=== PATIENT | male | born 1975 | race Caucasian/White ===

== ENCOUNTER 2017-02-06 11:09 | Inpatient (IN) | payer OTHER ==
[2017-02-06] MEDS ORDERED: SODIUM CHLORIDE 1,000 ML IV STA ×3 (12:12→12:58)
[2017-02-06] MEDS ORDERED: ONDANSETRON 4 MG/2 ML VIAL IVPUSH ONE (12:19)
[2017-02-06] MEDS ORDERED: ONDANSETRON 4 MG/2 ML VIAL ONE (12:25)
[2017-02-06 12:27] LABS: BASOPHIL 0.5 % (0-2.0); MCH 32.8 pg (25.7-33.7); MCHC 32.7 g/dl (32.0-35.9); MEAN CELL VOLUME 100.4 fl (80-96); MEAN PLT VOLUME 9.2 fl (7.5-11.1); NEUTROPHILS 85.4 % (42.8-82.8); PLATELET COUNT 249 K/MM3 (134-434); RDW 13.8 % (11.9-15.9); WHITE BLOOD COUNT 7.9 K/mm3 (4.0-10.0)
--- NOTE | 2017-02-06 12:29 | PDOC ---
History of Present Illness - General Chief Complaint: Blood Sugar Problem Stated Complaint: HIGH SUGAR LEVELS Time Seen by Provider: 02/06/17 11:33 History Source: Patient Exam Limitations: No Limitations - History of Present Illness Initial Comments: This is a 41 yo male with h/o IDDM (dx age 24 with estimated >20 admissions and multiple episodes of DKA), [place] with stent x1, HTN, and schizo-affective disorder who presents BIBA with CBG>500 and c/o nausea, vomiting, shakes, excessive thirst, and excessive urination typical of his prior DKA symptoms. He notes that the symptoms started when he awoke this morning, and explains that he did not take his normal Lantus at all yesterday (normally takes 10 units in the morning and 5 units at night). He states that he did take his normal Humalog at each meal yesterday. He notes having drank one light beer yesterday night, but otherwise does not say why he did not take it. He additionally endorses chest pain which feels like burning, palpitations, difficulty seeing intermittently, and subjective fever. Past History - Past Medical History Allergies/Adverse Reactions: Allergies Allergy/AdvReac Type Severity Reaction Status Date / Time Penicillins Allergy Verified 02/06/17 11:27 shellfish derived Allergy Verified 02/06/17 11:27 Home Medications: Ambulatory Orders Benztropine Mesylate [Cogentin -] 1 mg PO BID 03/15/14 Haloperidol [Haldol -] 5 mg PO DAILY 03/15/14 Insulin Glargine,Hum.rec.anlog [Lantus Solostar PEN -] 15 units SQ HS 03/15/14 Insulin Lispro [Humalog] 10 unit SQ AC 03/15/14 Cardiac Disorders: Yes ([place]) Diabetes: Yes HTN: Yes Psychiatric Problems: Yes (schizoaffective disorder) - Surgical History Cardiac Surgery: Yes (stent) - Immunization History Immunization Up to Date: Yes - Psycho/Social/Smoking Cessation Hx Anxiety: No Suicidal Ideation: No Smoking History: Current every day smoker Have you smoked in the past 12 months: Yes Number of Cigarettes Smoked Daily: 20 Information on smoking cessation initiated: No 'Breaking Loose' booklet given: 03/15/14 Hx Alcohol Use: Yes Drug/Substance Use Hx: No Substance Use Type: None Hx Substance Use Treatment: No Review of Systems - Review of Systems Able to Perform ROS?: Yes Constitutional: Yes: Chills, Fever (subjective). No: Unexplained wgt Loss HEENTM: Yes: Recent change in vision. No: Nose Congestion, Throat Pain Respiratory: No: Cough, Shortness of Breath Cardiac (ROS): Yes: Chest Pain (burning after vomiting), Palpitations ABD/GI: Yes: Nausea, Vomiting, Abdominal cramping. No: Constipated, Diarrhea : Yes: Frequency. No: Burning, Dysuria Musculoskeletal: No: Back Pain, Neck Pain Integumentary: No: Bruising, Rash Neurological: Yes: Tremors, Weakness, Dizziness, Other (shaky). No: Headache, Numbness, Tingling Endocrine: Yes: Increased Thirst, Increased Urine. No: Unexplained Weight Gain , Unexplained Weight Loss *Physical Exam - Vital Signs Last Vital Signs Temp Pulse Resp BP Pulse Ox 97.9 F 104 H 22 110/70 98 02/06/17 11:22 02/06/17 11:22 02/06/17 11:22 02/06/17 11:02/06/17 12:02 - Physical Exam General Appearance: Yes: Nourished, Disheveled, Moderate Distress, Thin, Other ( uncooperative, intermittently answering questions, unable to sit still, speech slurred, eating ice chips persistently) HEENT: positive: EOMI, Normal Voice, Hearing Grossly Normal. negative: Scleral Icterus (R), Scleral Icterus (L), Nasal Congestion Neck: positive: Trachea midline, Supple. negative: Tender, Rigid Respiratory/Chest: positive: Lungs Clear, Normal Breath Sounds, Other ( occasional cough). negative: Respiratory Distress, Crackles, Rhonchi, Stridor, Wheezing Cardiovascular: positive: Regular Rhythm, Tachycardia. negative: Murmur Gastrointestinal/Abdominal: positive: Normal Bowel Sounds, Tender (minimal diffuse), Flat, Soft. negative: Organomegaly, Pulsatile Mass, Guarding Musculoskeletal: positive: Normal Inspection. negative: Decreased Range of Motion, Vertebral Tenderness Extremity: positive: Normal Capillary Refill, Normal Inspection, Normal Range of Motion. negative: Tender, Cyanosis Integumentary: positive: Normal Color, Dry, Warm. negative: Erythema, Rash, Bruising Neurologic: positive: lacquer coater II-XII NML intact, Fully Oriented, Alert, Normal Mood/ Affect, Normal Response, Motor Strength 5/5 ED Treatment Course - LABORATORY CBC & Chemistry Diagram: 02/06/17 12:20 02/06/17 12:20 Comment: Serum acetone 3+, VBG pH 7.25, VBG HCO3 13.7, anion gap 28 - RADIOLOGY Chest X-Ray Result: No Infiltrates Medical Decision Making - Medical Decision Making 41 yo male with poorly controlled type I IDDM and multipe prior DKA p/w CBG 648. Did not take Lantus yesterday. Has nausea, many episodes of vomiting, shakiness, dizziness, polyuria, polydipsia. Exam notable for eating many ice chips, HR 106, slurred speech, occasional cough , abdominal minimal ttp. DDX most likely DKA, possible HHS or other electrolyte imbalance. Cause of DKA DDX pancreatitis, UTI, PNA, arrhythmia, ACS, non-adherence to insulin regimen. Ordered are CBC, CMP, Mg, Phos, Troponin, serum acetone, lipase, VBG, UA w/ ctx , EKG, CXR, IVF, Zofran. BG 648, serum acetone 3+, VBG pH 7.25 and anion gap 28. Patient is in DKA and a second liter of NS is ordered with KCl and insulin drip. Also ordered insulin SQ bolus. CXR, EKG, UA, troponin, additional electrolytes all non-directive toward a precipitating cause. Pt is admitted to ICU for further management. *DC/Admit/Observation/Transfer Diagnosis at time of Disposition: DKA (diabetic ketoacidosis) Qualifiers: Diabetes mellitus type: type 1 Diabetes mellitus complication detail: without coma Qualified Code(s): E10.10 - Type 1 diabetes mellitus with ketoacidosis without coma - Discharge Dispostion Condition at time of disposition: Guarded Admit: Yes - Attestations Physician Attestion: 02/06/17 14:00 I, Dr. Lawanda Jiménez, attest that this document has been prepared under my direction and personally reviewed by me in its entirety. I further attest, that it accurately reflects all work, treatment, procedures and medical decision -making performed by me.
[2017-02-06 12:32] LABS: VENOUS BLOOD GAS HCO3 13.7 meq/L (19-25); VENOUS PH 7.25 (7.32-7.42)
[2017-02-06 12:49] LABS: MAGNESIUM 2.9 mg/dL (1.8-2.4); PHOSPHOROUS 6.1 mg/dL (2.5-4.9)
--- NOTE | 2017-02-06 12:51 | PDOC ---
Attending Attestation - Resident Resident Name: Lawanda Jiménez - ED Attending Attestation I have performed the following: I have examined & evaluated the patient, The case was reviewed & discussed with the resident, I agree w/resident's findings & plan, Exceptions are as noted - HPI HPI: 02/06/17 12:49 Agree with the resident's HPI as documented in the electronic medical record. - Physicial Exam PE: 02/06/17 12:50 Agree with the resident's physical examination as documented in the electronic medical record. - Medical Decision Making 02/06/17 12:50 41-year-old male with history of schizoaffective disorder and insulin-dependent diabetes with DKA in the past presents the emergency department with a myriad of symptomatology including chest pain, abdominal pain, vomiting and an elevated glucose. He is normotensive but mildly tachycardic. Differential diagnosis includes but is not limited to: DKA, uncontrolled diabetes, dehydration, electrolyte abnormality, infection (UTI, pneumonia), pancreatitis, gallbladder disease, toxic/metabolic derangement, ACS. Plan: 1. EKG 2. Labs 3. IV fluids for hydration 4. Chest x-ray 5. Urine analysis 6. Observe and reevaluate 02/06/17 13:03 Addendum: Labs are reviewed and are noted in the EMR. The patient is acidotic with a pH is 7.25 with an anion gap of 28, bicarbonate 15 and glucose in the high 600s with +3 acetone. The patient has been ordered 3 L of IV fluids with supplemental potassium to the fluids. Insulin drip has been initiated at 0.1 units per kilogram per hour as well as a regular insulin 10 unit subcutaneous bolus. The plan is to admit the patient to intensive care for DKA.
[2017-02-06 12:52] LABS: ALBUMIN 4.7 g/dl (3.4-5.0); ANION GAP 28 (8-16); BILIRUBIN,TOTAL 1.4 mg/dL (0.2-1.0); CALCIUM 10.1 mg/dL (8.5-10.1); CO2 15 mmol/L (21-32); CREATININE 1.3 mg/dL (0.7-1.3); SGOT/AST 39 U/L (15-37); SGPT/ALT 40 U/L (12-78); TOT PROT 7.9 g/dl (6.4-8.2)
[2017-02-06 12:55] LABS: ALK PHOS 154 U/L (45-117); TROPONIN I < 0.02 ng/ml (0.00-0.05)
[2017-02-06 12:58] LABS: GLUCOSE,RANDOM 648 mg/dL (74-106)
[2017-02-06] MEDS ORDERED: INSULIN REGULAR HUMAN 100 UNITS/ML *VIAL SQ ONE (12:58)
[2017-02-06] MEDS ORDERED: INSULIN REGULAR 100 UNITS in SODIUM CHLORIDE 99 ML IVPB SCH ×5 (13:00→21:27)
[2017-02-06] MEDS ORDERED: KCL 10 MEQ IVPB 100 ML IVPB SCH (13:00)
[2017-02-06] MEDS ORDERED: KCL 10 MEQ IVPB 100 ML IVPB ONE (13:22)
[2017-02-06 13:54] LABS: URINE APPEARANCE CLEAR; URINE BILIRUBIN NEGATIVE (NEGATIVE); URINE BLOOD NEGATIVE (NEGATIVE); URINE COLOR COLORLESS; URINE GLUCOSE (UA) 3+ (NEGATIVE); URINE KETONE 2+ (NEGATIVE); URINE LEUK ESTERASE NEGATIVE (NEGATIVE); URINE NITRITE NEGATIVE (NEGATIVE); URINE PROTEIN NEGATIVE (NEGATIVE); URINE UROBILINOGEN NEGATIVE mg/dL (0.2-1.0)
--- NOTE | 2017-02-06 14:28 | CONSULT ---
Consult Consult Specialty:: PULM/CRITICAL CARE MEDICINE Referred by:: Dr Cedillo Reason for Consultation:: DKA - History of Present Illness Chief Complaint: nausea and vomiting History of Present Illness: Briefly, a 41 y/o male IDDM with schizoaffective disorder, multiple admits for DKA, presents with several days of nausea and vomiting. BGL in ED >600, AGMA (28 ), with ketones in urine. He was given IVF and insulin. He is being admitted to ICU. Upon my interview he is querulous, refusing to answer questions or repeat information that he has already provided. He has become neither a digital media producer nor a consumer of information at this time. - History Source History Provided By: Medical Record Limitations to Obtaining History: Uncooperative - Past Medical History Cardio/Vascular: Yes: HTN, Hyperlipdemia, [place] (Status post stent) Gastrointestinal: Yes: Other (Hernia) Psych: Yes: Other (Schizoaffective disorder) Endocrine: Yes: Diabetes Mellitus - Past Surgical History Past Surgical History: Yes: None - Alcohol/Substance Use Hx Alcohol Use: Yes Number of Drinks Daily: 1 History of Substance Use: reports: Marijuana - Smoking History Smoking history: Current every day smoker Have you smoked in the past 12 months: Yes Aproximately how many cigarettes per day: 20 Home Medications - Allergies Allergies/Adverse Reactions: Allergies Allergy/AdvReac Type Severity Reaction Status Date / Time Penicillins Allergy Verified 02/06/17 11:27 shellfish derived Allergy Verified 02/06/17 11:27 - Home Medications Home Medications: Ambulatory Orders Benztropine Mesylate [Cogentin -] 1 mg PO BID 03/15/14 Haloperidol [Haldol -] 5 mg PO DAILY 03/15/14 Insulin Glargine,Hum.rec.anlog [Lantus Solostar PEN -] 15 units SQ HS 03/15/14 Insulin Lispro [Humalog] 10 unit SQ AC 03/15/14 Family Disease History - Family Disease History Family Disease History: Diabetes: Father, Other: Mother (unknown) Review of Systems Unable to obtain ROS, reason: refuses to answer Physical Exam Vital Signs: Vital Signs Temperature 97.9 F 02/06/17 11:22 Pulse Rate 104 H 02/06/17 11:22 Respiratory Rate 22 02/06/17 11:22 Blood Pressure 110/70 02/06/17 11:22 O2 Sat by Pulse Oximetry (%) 98 02/06/17 12:02 Constitutional: Yes: Cachectic, Thin Eyes: Yes: PERRL HENT: Yes: Atraumatic, Normocephalic Neck: Yes: Trachea Midline Cardiovascular: Yes: Regular Rate and Rhythm Respiratory: Yes: CTA Bilaterally Gastrointestinal: Yes: Soft Extremities: Yes: WNL Edema: No Integumentary: Yes: WNL Neurological: Yes: Alert, Oriented Labs: CBC, BMP 02/06/17 12:20 02/06/17 12:20 Problem List - Problems (1) DKA (diabetic ketoacidosis) Code(s): E13.10 - OTH DIABETES MELLITUS WITH KETOACIDOSIS WITHOUT COMA Qualifiers: Diabetes mellitus type: type 1 Diabetes mellitus complication detail: without coma Qualified Code(s): E10.10 - Type 1 diabetes mellitus with ketoacidosis without coma (2) Schizoaffective disorder Code(s): F25.9 - SCHIZOAFFECTIVE DISORDER, UNSPECIFIED Assessment/Plan DKA Dehydration Schizoaffective disorder -Insulin drip 0.1units/kg/hr -q1h fingersticks -IVF - NS for now -Add Dextrose to NS when BGL is <250 -q4h BMP -Aggressive K replacement -Zofran PRN -Continue home meds -Convert to subcutaneous Insulin when able to tolerate POs and AG has closed Thank you for this interesting consult Critically Ill - CCT 35min Erwin Llanos [place]/Critical Care [employer] INSTALLER [id number]
--- NOTE | 2017-02-06 14:44 | HP ---
CHIEF COMPLAINT: Nausea/vomiting PCP: Will not give that information HISTORY OF PRESENT ILLNESS: This is a 41 year old male with PMHx of schizoaffective disorder, HTN, IDDM with multiple admissions for DKA, [place] s/p stent placement in 2012, who presented to the ED with nausea and vomiting and was found to have DKA. That patient is unwilling to speak to me at the moment, repeating "I already told people this". He is reportedly taking 10u Levemir bid and 7u humalog tidac. His vomiting began this morning. ER course was notable for: (1) VBG pH 7.25 (2) Na 133, anion gap 28, glucose 648, 2+ urine ketones, acetone 3+ (3) Chest x-ray with no acute pathology (4) 10u sq novolog given followed by insulin gtt (5) 3L NS bolus ordered Recent Travel: unwilling to provide this information PAST MEDICAL HISTORY: as above PAST SURGICAL HISTORY: unwilling to provider Social History: Smoking: unwilling to provide Alcohol: unwilling to provide Drugs: unwilling to provide Family History: Allergies Penicillins Allergy (Verified 02/06/17 11:27) shellfish derived Allergy (Verified 02/06/17 11:27) HOME MEDICATIONS: Home Medications Medication Instructions Recorded Benztropine Mesylate [Cogentin -] 1 mg PO BID 03/15/14 Haloperidol [Haldol -] 5 mg PO DAILY 03/15/14 Insulin Glargine,Hum.rec.anlog 15 units SQ HS 03/15/14 [Lantus Solostar PEN -] Insulin Lispro [Humalog] 10 unit SQ AC 03/15/14 REVIEW OF SYSTEMS Patient reports nausea and vomiting beginning this morning. Was unwilling to answer any further questions PHYSICAL EXAMINATION Vital Signs - 24 hr 02/06/17 02/06/17 11:22 12:02 Temperature 97.9 F Pulse Rate 104 H Respiratory 22 Rate Blood Pressure 110/70 O2 Sat by Pulse 98 98 Oximetry (%) GENERAL: Awake, alert HEAD: Normal with no signs of trauma. Refused exam CBCD WBC 7.9 K/mm3 (4.0-10.0) D 02/06/17 12:20 RBC 4.29 M/mm3 (4.00-5.60) 02/06/17 12:20 Hgb 14.1 GM/dL (11.7-16.9) D 02/06/17 12:20 Hct 43.1 % (35.4-49) D 02/06/17 12:20 MCV 100.4 fl (80-96) H 02/06/17 12:20 MCHC 32.7 g/dl (32.0-35.9) 02/06/17 12:20 RDW 13.8 % (11.9-15.9) 02/06/17 12:20 Plt Count 249 K/MM3 (134-434) 02/06/17 12:20 MPV 9.2 fl (7.5-11.1) 02/06/17 12:20 CMP Sodium 133 mmol/L (136-145) L 02/06/17 12:20 Potassium 5.0 mmol/L (3.5-5.1) D 02/06/17 12:20 Chloride 90 mmol/L (98-107) L D 02/06/17 12:20 Carbon Dioxide 15 mmol/L (21-32) L D 02/06/17 12:20 Anion Gap 28 (8-16) H 02/06/17 12:20 BUN 29 mg/dL (7-18) H D 02/06/17 12:20 Creatinine 1.3 mg/dL (0.7-1.3) D 02/06/17 12:20 Creat Clearance w eGFR > 60 (>60) 02/06/17 12:20 Random Glucose 648 mg/dL (74-106) H* D 02/06/17 12:20 Calcium 10.1 mg/dL (8.5-10.1) 02/06/17 12:20 Total Bilirubin 1.4 mg/dL (0.2-1.0) H D 02/06/17 12:20 AST 39 U/L (15-37) H D 02/06/17 12:20 ALT 40 U/L (12-78) D 02/06/17 12:20 Alkaline Phosphatase 154 U/L (45-117) H D 02/06/17 12:20 Total Protein 7.9 g/dl (6.4-8.2) 02/06/17 12:20 Albumin 4.7 g/dl (3.4-5.0) 02/06/17 12:20 CARDIAC ENZYMES Troponin I < 0.02 ng/ml (0.00-0.05) 02/06/17 12:20 Assessment: This is a 41 year old male with PMHx of schizoaffective disorder, HTN, IDDM with multiple admissions for DKA, [place] s/p stent placement in 2012, who presented to the ED with nausea and vomiting and was found to have DKA. Plan: 1) DKA - Admission to ICU - Continue insulin gtt - Continue normal saline IVF for now, will recheck glucose level. When glucose falls <250, will add dextrose - BGM q1h - Q4h BMP to monitor gap - Aggressive K replacement - Zofran prn - NPO status until gap closes - Convert to subq insulin once anion gap closes and tolerating po - Appreciate senior project manager engineering consult 2) Schizoaffective disorder - Continue Haldol - Continue Cogentin 3) Cardiology: HTN - Not on home medications - BP controlled 4) F/E/N: - Monitor electrolytes - NPO - IVF 5) Prophylaxis: - Heparin 5,000u sq tid - OOB ambulating 6) Dispo: - Requires continued ICU care CODE STATUS: FULL CODE Problem List - Problem (1) DKA (diabetic ketoacidosis) Code(s): E13.10 - OTH DIABETES MELLITUS WITH KETOACIDOSIS WITHOUT COMA Qualifiers: Diabetes mellitus type: type 1 Diabetes mellitus complication detail: without coma Qualified Code(s): E10.10 - Type 1 diabetes mellitus with ketoacidosis without coma (2) Diabetes type 1, uncontrolled Code(s): E10.65 - TYPE 1 DIABETES MELLITUS WITH HYPERGLYCEMIA (3) Schizoaffective disorder Code(s): F25.9 - SCHIZOAFFECTIVE DISORDER, UNSPECIFIED Visit type - Emergency Visit Emergency Visit: Yes ED Registration Date: 02/06/17 Care time: The patient presented to the Emergency Department on the above date and was hospitalized for further evaluation of their emergent condition. - New Patient This patient is new to me today: Yes Date on this admission: 02/06/17 - Critical Care Critical Care patient: Yes Total Critical Care Time (in minutes): 55 Critical Care Statement: The care of this patient involved high complexity decision making to prevent further life threatening deterioration of the patient 's condition and/or to evalute & treat vital organ system(s) failure or risk of failure.
[2017-02-06] MEDS ORDERED: DEXTROSE 5%-NORMAL SALINE 1,000 ML IV SCH ×2 (17:45→18:15)
[2017-02-06] MEDS ORDERED: HEPARIN NA (PORCINE) 5,000 UNITS/ML 1ML VIAL SQ SCH (18:00)
[2017-02-06] MEDS ORDERED: DEXTROSE 5%-0.45% SALINE 1,000 ML IV SCH (18:15)
[2017-02-06 19:15] VITALS: BMI 17.9
[2017-02-06] MEDS ORDERED: D5-NS + 20 MEQ KCL - 1,000 ML IV SCH (21:30)
[2017-02-06] MEDS: BENZTROPINE MESYLATE 1 MG TABLET (FP) PO SCH (23:46)
[2017-02-06] MEDS: MUPIROCIN 2% TOPICAL OINTMENT FOR DECOLONIZATION NS SCH (23:46)
[2017-02-06] MEDS: CHLORHEXIDINE GLUCONATE 4% CLEANSER FOR DECOLONIZATION TP SCH (23:46)
[2017-02-06] MEDS: HEPARIN NA (PORCINE) 5,000 UNITS/ML 1ML VIAL SQ SCH (23:46)
[2017-02-07 01:34] LABS: BASOPHIL 0.6 % (0-2.0); EOSINOPHIL 0.3 % (0-4.5); MCH 32.2 pg (25.7-33.7); MCHC 33.4 g/dl (32.0-35.9); MEAN CELL VOLUME 96.4 fl (80-96); MEAN PLT VOLUME 8.5 fl (7.5-11.1); NEUTROPHILS 69.6 % (42.8-82.8); PLATELET COUNT 250 K/MM3 (134-434); RDW 13.3 % (11.9-15.9)
[2017-02-07 02:00] LABS: ANION GAP 9 (8-16); CALCIUM 8.1 mg/dL (8.5-10.1); CO2 22 mmol/L (21-32); CREATININE 0.9 mg/dL (0.7-1.3); GLUCOSE,RANDOM 175 mg/dL (74-106); MAGNESIUM 2.3 mg/dL (1.8-2.4)
[2017-02-07] MEDS: HEPARIN NA (PORCINE) 5,000 UNITS/ML 1ML VIAL SQ SCH ×3 (05:37→21:12)
[2017-02-07 06:16] LABS: BASOPHIL 0.5 % (0-2.0); EOSINOPHIL 0.8 % (0-4.5); MCH 32.5 pg (25.7-33.7); MCHC 33.2 g/dl (32.0-35.9); MEAN CELL VOLUME 97.8 fl (80-96); MEAN PLT VOLUME 8.8 fl (7.5-11.1); NEUTROPHILS 70.3 % (42.8-82.8); PLATELET COUNT 239 K/MM3 (134-434); RDW 13.3 % (11.9-15.9); WHITE BLOOD COUNT 15.1 K/mm3 (4.0-10.0)
[2017-02-07 06:49] LABS: ANION GAP 10 (8-16); CALCIUM 8.1 mg/dL (8.5-10.1); CO2 24 mmol/L (21-32); CREATININE 0.9 mg/dL (0.7-1.3); GLUCOSE,RANDOM 213 mg/dL (74-106)
[2017-02-07] MEDS: INSULIN (NOVOLOG) ASPART 100 UNITS/ML 10ML VIAL SQ SCH ×3 (08:08→17:45)
[2017-02-07] MEDS: INSULIN SLIDING SCALE (NOVOLOG) 1 VIAL SQ SCH ×2 (08:37→11:04)
[2017-02-07] MEDS ORDERED: PT OWN MED DRAWER 7, Y5N ONE ×2 (09:36→21:07)
[2017-02-07] MEDS: BENZTROPINE MESYLATE 1 MG TABLET (FP) PO SCH ×2 (09:44→21:12)
[2017-02-07] MEDS: HALOPERIDOL 5 MG TABLET (FP) PO SCH (10:56)
[2017-02-07] MEDS: MUPIROCIN 2% TOPICAL OINTMENT FOR DECOLONIZATION NS SCH ×2 (11:02→21:12)
[2017-02-07] MEDS ORDERED: INSULIN DETEMIR 100 UNITS/ML MDV SQ ONE (11:52)
--- NOTE | 2017-02-07 11:59 | PN ---
Progress Note (short form) - Note Progress Note: Subjective: The patient was seen at the bedside. He is stating he is hungry and does not want to provide any further information. Current Medications Generic Name Dose Route Start Last Admin Trade Name Poncho PRN Reason Stop Dose Admin Benztropine Mesylate 1 mg 02/06/17 22:00 02/07/17 09:44 Cogentin - PO 1 mg BID THALIA Administration Chlorhexidine Gluconate 1 applic 02/06/17 22:00 02/06/17 23:46 Hibiclens For Decolonization - TP Not Given HS THALIA Haloperidol 5 mg 02/07/17 10:00 02/07/17 10:56 Haldol - PO 5 mg DAILY THALIA Administration Heparin Sodium (Porcine) 5,000 unit 02/06/17 22:00 02/07/17 05:37 Heparin - SQ Not Given TID THALIA Insulin Human Regular 100 100 mls @ 65.31 mls/hr 02/06/17 21:27 02/07/17 11:40 units/ Sodium Chloride IVPB 0.03 units/kg/hr TITR THALIA Titration Protocol 1 UNITS/KG/HR Dextrose/Sodium Chloride 1,000 mls @ 150 mls/hr 02/06/17 21:30 02/06/17 21:30 Dextrose 5%-Normal Saline+20 Meq Kcl - IV 150 mls/hr ASDIR THALIA Administration Insulin Aspart 5 units 02/07/17 07:00 02/07/17 11:04 Novolog Vial SQ 5 units TIDAC THALIA Administration Mupirocin 1 applic 02/06/17 22:00 02/07/17 11:02 Bactroban Ointment (For Decolonization) - NS 02/11/17 21:59 Not Given BID THALIA Objective: Vital Signs Period Temp Pulse Resp BP Sys/[place] Pulse Ox Last 24 Hr 98.4 F-98.7 F 88-108 16-22 103-112/52-67 97-99 Physical Exam: Patient refused CBCD WBC 15.1 K/mm3 (4.0-10.0) H 02/07/17 05:20 RBC 3.39 M/mm3 (4.00-5.60) L 02/07/17 05:20 Hgb 11.0 GM/dL (11.7-16.9) L 02/07/17 05:20 Hct 33.2 % (35.4-49) L 02/07/17 05:20 MCV 97.8 fl (80-96) H 02/07/17 05:20 MCHC 33.2 g/dl (32.0-35.9) 02/07/17 05:20 RDW 13.3 % (11.9-15.9) 02/07/17 05:20 Plt Count 239 K/MM3 (134-434) 02/07/17 05:20 MPV 8.8 fl (7.5-11.1) 02/07/17 05:20 CMP Sodium 141 mmol/L (136-145) 02/07/17 05:20 Potassium 4.0 mmol/L (3.5-5.1) 02/07/17 05:20 Chloride 107 mmol/L (98-107) 02/07/17 05:20 Carbon Dioxide 24 mmol/L (21-32) 02/07/17 05:20 Anion Gap 10 (8-16) 02/07/17 05:20 BUN 15 mg/dL (7-18) D 02/07/17 05:20 Creatinine 0.9 mg/dL (0.7-1.3) 02/07/17 05:20 Creat Clearance w eGFR > 60 (>60) 02/06/17 12:20 Random Glucose 387 mg/dL (74-106) H* D 02/07/17 09:30 Calcium 8.1 mg/dL (8.5-10.1) L 02/07/17 05:20 Total Bilirubin 1.4 mg/dL (0.2-1.0) H D 02/06/17 12:20 AST 39 U/L (15-37) H D 02/06/17 12:20 ALT 40 U/L (12-78) D 02/06/17 12:20 Alkaline Phosphatase 154 U/L (45-117) H D 02/06/17 12:20 Total Protein 7.9 g/dl (6.4-8.2) 02/06/17 12:20 Albumin 4.7 g/dl (3.4-5.0) 02/06/17 12:20 CARDIAC ENZYMES Troponin I < 0.02 ng/ml (0.00-0.05) 02/06/17 12:20 Microbiology 02/06/17 13:40 Urine - Urine Clean Catch Urine Culture - Final NO GROWTH OBTAINED Assessment: This is a 41 year old male with PMHx of schizoaffective disorder, HTN, IDDM with multiple admissions for DKA, [place] s/p stent placement in 2012, who presented to the ED with nausea and vomiting and was found to have DKA. Plan: 1) DKA - Gap closed - Patient eating - Start Levemir 20u sq now - Novolog 5u sq tidac - Recheck BMP two hours after Levemir to assure gap remains closed - If gap remains closed, will turn off insulin gtt - BGM q1h - Appreciate wool fleece grader consult 2) Schizoaffective disorder - Continue Haldol at current dose - Continue Cogentin 3) Cardiology: HTN - Not on home medications - BP controlled 4) F/E/N: - Monitor electrolytes - Diabetic diet - IVF 5) Prophylaxis: - Heparin 5,000u sq tid - OOB ambulating 6) Dispo: - Requires continued ICU care CODE STATUS: FULL CODE Problem List - Problems (1) DKA (diabetic ketoacidosis) Code(s): E13.10 - OTH DIABETES MELLITUS WITH KETOACIDOSIS WITHOUT COMA Qualifiers: Diabetes mellitus type: type 1 Diabetes mellitus complication detail: without coma Qualified Code(s): E10.10 - Type 1 diabetes mellitus with ketoacidosis without coma (2) Diabetes type 1, uncontrolled Code(s): E10.65 - TYPE 1 DIABETES MELLITUS WITH HYPERGLYCEMIA (3) Schizoaffective disorder Code(s): F25.9 - SCHIZOAFFECTIVE DISORDER, UNSPECIFIED Visit type - Emergency Visit Emergency Visit: Yes ED Registration Date: 02/06/17 Care time: The patient presented to the Emergency Department on the above date and was hospitalized for further evaluation of their emergent condition. - New Patient This patient is new to me today: No - Critical Care Critical Care patient: Yes Total Critical Care Time (in minutes): 45 Critical Care Statement: The care of this patient involved high complexity decision making to prevent further life threatening deterioration of the patient 's condition and/or to evalute & treat vital organ system(s) failure or risk of failure.
--- NOTE | 2017-02-07 12:02 | PN ---
Progress Note (short form) - Note Progress Note: PULM/CCM Pt seen and examined in ICU 24Hr: Gap closed, eating levamir to start wants to leave, doesnt want to be examined CBC, BMP 02/07/17 05:20 02/07/17 09:30 Vital Signs Temp 98.4 F 02/06/17 18:15 Pulse 88 02/07/17 09:47 Resp 18 02/07/17 09:47 BP 103/65 02/07/17 09:47 Pulse Ox 97 02/06/17 19:55 Intake & Output 02/06/17 02/07/17 02/07/17 23:59 11:59 23:59 Intake Total 1000 1800 Output Total 300 800 Balance 700 1000 Weight 56.5 kg Intake: IV 1800 Dextrose 5%-Normal Saline 1800 +20 Meq KCl - 1,000 ml @ 150 mls/hr IV ASDIR [facility], [facility] Rx#:[id number] Oral 1000 Output: Urine 300 800 Void 300 800 Other: Voiding Method Urinal Height 5 ft 10 in Body Mass Index (BMI) 17.9 Ambulatory Orders Benztropine Mesylate [Cogentin -] 1 mg PO BID 03/15/14 Haloperidol [Haldol -] 5 mg PO DAILY 03/15/14 Insulin Glargine,Hum.rec.anlog [Lantus Solostar PEN -] 15 units SQ HS 03/15/14 Insulin Lispro [Humalog] 10 unit SQ AC 03/15/14 Active Medications Benztropine Mesylate (Cogentin -) 1 mg PO BID [facility] Last Admin: 02/07/17 09:44 Dose: 1 mg Chlorhexidine Gluconate (Hibiclens For Decolonization -) 1 applic TP HS [facility] Last Admin: 02/06/17 23:46 Dose: Not Given Haloperidol (Haldol -) 5 mg PO DAILY [facility] Last Admin: 02/07/17 10:56 Dose: 5 mg Heparin Sodium (Porcine) (Heparin -) 5,000 unit SQ TID [facility] Last Admin: 02/07/17 05:37 Dose: Not Given Insulin Human Regular 100 (units/ Sodium Chloride) 100 mls @ 65.31 mls/hr IVPB TITR THALIA; 1 UNITS/KG/HR PRN Reason: Protocol Last Titration: 02/07/17 11:40 Dose: 0.03 units/kg/hr Dextrose/Sodium Chloride (Dextrose 5%-Normal Saline+20 Meq Kcl -) 1,000 mls @ 150 mls/hr IV ASDIR [facility] Last Admin: 02/06/17 21:30 Dose: 150 mls/hr Insulin Aspart (Novolog Vial) 5 units SQ TIDAC [facility] Last Admin: 02/07/17 11:04 Dose: 5 units Mupirocin (Bactroban Ointment (For Decolonization) -) 1 applic NS BID [facility] Stop: 02/11/17 21:59 Last Admin: 02/07/17 11:02 Dose: Not Given Constitutional: Yes: Cachectic, Thin Eyes: Yes: PERRL HENT: Yes: Atraumatic, Normocephalic Neck: Yes: Trachea Midline Cardiovascular: Yes: Regular Rate and Rhythm Respiratory: Yes: CTA Bilaterally Gastrointestinal: Yes: Soft Extremities: Yes: WNL Edema: No Integumentary: Yes: WNL Neurological: Yes: Alert, Oriented Problem List - Problems (1) DKA (diabetic ketoacidosis) Code(s): E13.10 - OTH DIABETES MELLITUS WITH KETOACIDOSIS WITHOUT COMA Qualifiers: Diabetes mellitus type: type 1 Diabetes mellitus complication detail: without coma Qualified Code(s): E10.10 - Type 1 diabetes mellitus with ketoacidosis without coma (2) Schizoaffective disorder Code(s): F25.9 - SCHIZOAFFECTIVE DISORDER, UNSPECIFIED Assessment/Plan DKA Dehydration Schizoaffective disorder -transition to SQ insulin as eating and Gap closed -restart cogentin and haldol -Bid BMP -electrolye replacement -Zofran PRN -Continue home meds OK for floor [id number]
[2017-02-07 14:27] LABS: ANION GAP 7 (8-16); CALCIUM 8.1 mg/dL (8.5-10.1); CO2 26 mmol/L (21-32); GLUCOSE,RANDOM 132 mg/dL (74-106)
--- NOTE | 2017-02-07 17:57 | EKG ---
Test Reason : Blood Pressure : / mmHG Vent. Rate : 112 BPM Atrial Rate : 112 BPM P-R Int : 140 ms QRS Dur : 100 ms QT Int : 356 ms P-R-T Axes : 076 -28 038 degrees QTc Int : 485 ms SINUS TACHYCARDIA POSSIBLE LEFT ATRIAL ENLARGEMENT INFERIOR INFARCT (CITED ON OR BEFORE 15-MAR-2014) ANTERIOR INFARCT (CITED ON OR BEFORE 15-MAR-2014) ABNORMAL ECG WHEN COMPARED WITH ECG OF 15-MAR-2014 01:18, NO SIGNIFICANT CHANGE WAS FOUND CLINICAL CORRELATION IS RECOMMENDED AND REPEAT INDICATED Confirmed by JESSIE CARVER MD ([id number]) on 02/07/2017 5:57:15 PM Referred By: Confirmed By:JESSIE CARVER MD
[2017-02-07] MEDS: CHLORHEXIDINE GLUCONATE 4% CLEANSER FOR DECOLONIZATION TP SCH (21:13)
[2017-02-07] MEDS ORDERED: INSULIN DETEMIR 100 UNITS/ML MDV SQ SCH (22:00)
[2017-02-08] MEDS ORDERED: INSULIN DETEMIR 100 UNITS/ML MDV SQ SCH (07:00)
[2017-02-08] MEDS ORDERED: HEMOQUE TEST 1 EACH EACH ONE ×3 (07:23→13:04)
[2017-02-08] MEDS: HEPARIN NA (PORCINE) 5,000 UNITS/ML 1ML VIAL SQ SCH ×3 (07:30→22:35)
[2017-02-08] MEDS: INSULIN (NOVOLOG) ASPART 100 UNITS/ML 10ML VIAL SQ SCH ×2 (07:32→17:26)
[2017-02-08] MEDS ORDERED: INSULIN (NOVOLOG) ASPART 100 UNITS/ML 10ML VIAL SQ SCH (08:28)
[2017-02-08 09:18] LABS: EOSINOPHIL 1.3 % (0-4.5); MEAN CELL VOLUME 96.9 fl (80-96); MEAN PLT VOLUME 8.2 fl (7.5-11.1); NEUTROPHILS 67.4 % (42.8-82.8); PLATELET COUNT 218 K/MM3 (134-434); RDW 13.4 % (11.9-15.9); WHITE BLOOD COUNT 10.4 K/mm3 (4.0-10.0)
--- NOTE | 2017-02-08 09:37 | PN ---
Progress Note (short form) - Note Progress Note: Subjective: The patient was seen at the bedside. He is stating he is hungry and does not want to provide any further information. Current Medications Generic Name Dose Route Start Last Admin Trade Name Poncho PRN Reason Stop Dose Admin Benztropine Mesylate 1 mg 02/06/17 22:00 02/07/17 09:44 Cogentin - PO 1 mg BID THALIA Administration Chlorhexidine Gluconate 1 applic 02/06/17 22:00 02/06/17 23:46 Hibiclens For Decolonization - TP Not Given HS THALIA Haloperidol 5 mg 02/07/17 10:00 02/07/17 10:56 Haldol - PO 5 mg DAILY THALIA Administration Heparin Sodium (Porcine) 5,000 unit 02/06/17 22:00 02/07/17 05:37 Heparin - SQ Not Given TID THALIA Insulin Human Regular 100 100 mls @ 65.31 mls/hr 02/06/17 21:27 02/07/17 11:40 units/ Sodium Chloride IVPB 0.03 units/kg/hr TITR THALIA Titration Protocol 1 UNITS/KG/HR Dextrose/Sodium Chloride 1,000 mls @ 150 mls/hr 02/06/17 21:30 02/06/17 21:30 Dextrose 5%-Normal Saline+20 Meq Kcl - IV 150 mls/hr ASDIR THALIA Administration Insulin Aspart 5 units 02/07/17 07:00 02/07/17 11:04 Novolog Vial SQ 5 units TIDAC THALIA Administration Mupirocin 1 applic 02/06/17 22:00 02/07/17 11:02 Bactroban Ointment (For Decolonization) - NS 02/11/17 21:59 Not Given BID THALIA Objective: Vital Signs Period Temp Pulse Resp BP Sys/[place] Pulse Ox Last 24 Hr 98.4 F-98.7 F 88-108 16-22 103-112/52-67 97-99 Physical Exam: Patient refused CBCD WBC 15.1 K/mm3 (4.0-10.0) H 02/07/17 05:20 RBC 3.39 M/mm3 (4.00-5.60) L 02/07/17 05:20 Hgb 11.0 GM/dL (11.7-16.9) L 02/07/17 05:20 Hct 33.2 % (35.4-49) L 02/07/17 05:20 MCV 97.8 fl (80-96) H 02/07/17 05:20 MCHC 33.2 g/dl (32.0-35.9) 02/07/17 05:20 RDW 13.3 % (11.9-15.9) 02/07/17 05:20 Plt Count 239 K/MM3 (134-434) 02/07/17 05:20 MPV 8.8 fl (7.5-11.1) 02/07/17 05:20 CMP Sodium 141 mmol/L (136-145) 02/07/17 05:20 Potassium 4.0 mmol/L (3.5-5.1) 02/07/17 05:20 Chloride 107 mmol/L (98-107) 02/07/17 05:20 Carbon Dioxide 24 mmol/L (21-32) 02/07/17 05:20 Anion Gap 10 (8-16) 02/07/17 05:20 BUN 15 mg/dL (7-18) D 02/07/17 05:20 Creatinine 0.9 mg/dL (0.7-1.3) 02/07/17 05:20 Creat Clearance w eGFR > 60 (>60) 02/06/17 12:20 Random Glucose 387 mg/dL (74-106) H* D 02/07/17 09:30 Calcium 8.1 mg/dL (8.5-10.1) L 02/07/17 05:20 Total Bilirubin 1.4 mg/dL (0.2-1.0) H D 02/06/17 12:20 AST 39 U/L (15-37) H D 02/06/17 12:20 ALT 40 U/L (12-78) D 02/06/17 12:20 Alkaline Phosphatase 154 U/L (45-117) H D 02/06/17 12:20 Total Protein 7.9 g/dl (6.4-8.2) 02/06/17 12:20 Albumin 4.7 g/dl (3.4-5.0) 02/06/17 12:20 CARDIAC ENZYMES Troponin I < 0.02 ng/ml (0.00-0.05) 02/06/17 12:20 Microbiology 02/06/17 13:40 Urine - Urine Clean Catch Urine Culture - Final NO GROWTH OBTAINED Assessment: This is a 41 year old male with PMHx of schizoaffective disorder, HTN, IDDM with multiple admissions for DKA, [place] s/p stent placement in 2012, who presented to the ED with nausea and vomiting and was found to have DKA. Plan: 1) DKA - Gap closed - Patient eating - Continue Levemir 20u sq daily - Novolog 7u sq tidac - F/u endocrine consult - Appreciate gas worker consult 2) Schizoaffective disorder - Continue Haldol at current dose - Continue Cogentin 3) Cardiology: HTN - Not on home medications - BP controlled 4) F/E/N: - Monitor electrolytes - Diabetic diet 5) Prophylaxis: - Heparin 5,000u sq tid - OOB ambulating 6) Dispo: - Can transfer to floors CODE STATUS: FULL CODE Problem List - Problems (1) DKA (diabetic ketoacidosis) Code(s): E13.10 - OTH DIABETES MELLITUS WITH KETOACIDOSIS WITHOUT COMA Qualifiers: Diabetes mellitus type: type 1 Diabetes mellitus complication detail: without coma Qualified Code(s): E10.10 - Type 1 diabetes mellitus with ketoacidosis without coma (2) Diabetes type 1, uncontrolled Code(s): E10.65 - TYPE 1 DIABETES MELLITUS WITH HYPERGLYCEMIA (3) Schizoaffective disorder Code(s): F25.9 - SCHIZOAFFECTIVE DISORDER, UNSPECIFIED Visit type - Emergency Visit Emergency Visit: Yes ED Registration Date: 02/06/17 Care time: The patient presented to the Emergency Department on the above date and was hospitalized for further evaluation of their emergent condition. - New Patient This patient is new to me today: No - Critical Care Critical Care patient: No
[2017-02-08] MEDS: MUPIROCIN 2% TOPICAL OINTMENT FOR DECOLONIZATION NS SCH (09:54)
[2017-02-08] MEDS ORDERED: PT OWN MED DRAWER 7, Y5N ONE (09:55)
[2017-02-08] MEDS: HALOPERIDOL 5 MG TABLET (FP) PO SCH (09:58)
[2017-02-08] MEDS: BENZTROPINE MESYLATE 1 MG TABLET (FP) PO SCH ×2 (09:58→22:34)
[2017-02-08 09:59] LABS: ALK PHOS 92 U/L (45-117); ANION GAP 7 (8-16); BILIRUBIN,TOTAL 0.8 mg/dL (0.2-1.0); CALCIUM 8.4 mg/dL (8.5-10.1); CO2 25 mmol/L (21-32); CREATININE 0.9 mg/dL (0.7-1.3); GLUCOSE,RANDOM 285 mg/dL (74-106); SGOT/AST 66 U/L (15-37); SGPT/ALT 66 U/L (12-78); TOT PROT 5.5 g/dl (6.4-8.2)
--- NOTE | 2017-02-08 12:50 | PN ---
Progress Note, Physician History of Present Illness: patient seen and examined at bedside no complaints - Current Medication List Current Medications: Active Medications Benztropine Mesylate (Cogentin -) 1 mg PO BID REPLACED BY [facility] Last Admin: 02/08/17 09:58 Dose: 1 mg Chlorhexidine Gluconate (Hibiclens For Decolonization -) 1 applic TP HS REPLACED BY [facility] Last Admin: 02/07/17 21:13 Dose: Not Given Haloperidol (Haldol -) 5 mg PO DAILY REPLACED BY [facility] Last Admin: 02/08/17 09:58 Dose: 5 mg Heparin Sodium (Porcine) (Heparin -) 5,000 unit SQ TID REPLACED BY [facility] Last Admin: 02/08/17 07:30 Dose: 5,000 unit Insulin Aspart (Novolog Vial) 7 units SQ TIDAC REPLACED BY [facility] Last Admin: 02/08/17 11:26 Dose: 7 units Insulin Detemir (Levemir Vial) 20 units SQ AM REPLACED BY [facility] Last Admin: 02/08/17 07:30 Dose: 20 units Mupirocin (Bactroban Ointment (For Decolonization) -) 1 applic NS BID REPLACED BY [facility] Stop: 02/11/17 21:59 Last Admin: 02/08/17 09:54 Dose: Not Given - Objective Vital Signs: Vital Signs Temperature 97.5 F L 02/08/17 06:15 Pulse Rate 78 02/08/17 09:49 Respiratory Rate 20 02/08/17 09:49 Blood Pressure 130/84 02/08/17 09:49 O2 Sat by Pulse Oximetry (%) 97 02/06/17 19:55 Constitutional: Yes: Well Nourished, No Distress, Calm Eyes: Yes: Conjunctiva Clear HENT: Yes: Atraumatic, Normocephalic Neck: Yes: Supple, Trachea Midline Cardiovascular: Yes: Regular Rate and Rhythm Respiratory: Yes: Regular, CTA Bilaterally Gastrointestinal: Yes: WNL, Soft Breast(s): Yes: Gynecomastia Extremities: Yes: WNL Edema: No Neurological: Yes: Alert, Oriented Psychiatric: Yes: Alert, Oriented Labs: CBC, BMP 02/08/17 09:14 02/08/17 09:14 Assessment/Plan 41M with IDDM presented to ICU with DKA now resolved DKA Resolved on diabetic diet continue BGM continue insulin endocrinology consult fingersticks need to be better controlled Schizoaffective disorder Continue Haldol -Continue Cogentin HTN Not on home medications BP well controlled at this time FEN: No IVF No electrolyte issues diabetic diet PPx OOB HSQ transfer to floors
--- NOTE | 2017-02-08 16:15 | PN ---
Teaching Attending Note Name of Resident: John Park ATTENDING PHYSICIAN STATEMENT I saw and evaluated the patient. I reviewed the resident's note and discussed the case with the resident. I agree with the resident's findings and plan as documented. SUBJECTIVE: Feels overall better. Denies CP or SOB. BGM better. Intake & Output 02/05/17 02/06/17 02/07/17 02/08/17 23:59 23:59 23:59 23:59 Intake Total 1000 3150 Output Total 300 2050 Balance 700 1100 Weight 124 lb 8.979 oz 124 lb 8.979 oz Last Vital Signs Temp Pulse Resp BP Pulse Ox 98.7 F 76 18 127/74 97 02/08/17 14:00 02/08/17 14:00 02/08/17 14:00 02/08/17 14:00 02/06/17 19:55 Active Medications Benztropine Mesylate (Cogentin -) 1 mg PO BID THALIA Chlorhexidine Gluconate (Hibiclens For Decolonization -) 1 applic TP HS THALIA Haloperidol (Haldol -) 5 mg PO DAILY THALIA Heparin Sodium (Porcine) (Heparin -) 5,000 unit SQ TID THALIA Insulin Aspart (Novolog Vial) 7 units SQ TIDAC THALIA Insulin Detemir (Levemir Vial) 20 units SQ AM THALIA Mupirocin (Bactroban Ointment (For Decolonization) -) 1 applic NS BID THALIA Stop: 02/11/17 21:59 Constitutional: Yes: Cachectic, Thin Eyes: Yes: PERRL HENT: Yes: Atraumatic, Normocephalic Neck: Yes: Trachea Midline Cardiovascular: Yes: Regular Rate and Rhythm Respiratory: Yes: CTA Bilaterally Gastrointestinal: Yes: Soft Extremities: Yes: WNL Edema: No Integumentary: Yes: WNL Neurological: Yes: Alert, Oriented Laboratory Results - last 24 hr 02/07/17 02/07/17 02/07/17 17:09 20:07 21:55 WBC RBC Hgb Hct MCV MCH MCHC RDW Plt Count MPV Neutrophils % Lymphocytes % Monocytes % Eosinophils % Basophils % Sodium Potassium Chloride Carbon Dioxide Anion Gap BUN Creatinine Creat Clearance w eGFR POC Glucometer 102.44091 88.87806 312.97791 Random Glucose Calcium Total Bilirubin AST ALT Alkaline Phosphatase Total Protein Albumin 02/07/17 02/08/17 02/08/17 23:40 04:01 07:27 WBC RBC Hgb Hct MCV MCH MCHC RDW Plt Count MPV Neutrophils % Lymphocytes % Monocytes % Eosinophils % Basophils % Sodium Potassium Chloride Carbon Dioxide Anion Gap BUN Creatinine Creat Clearance w eGFR POC Glucometer 367.77818 286.36067 341.44084 Random Glucose Calcium Total Bilirubin AST ALT Alkaline Phosphatase Total Protein Albumin 02/08/17 02/08/17 02/08/17 09:14 09:14 11:19 WBC 10.4 H D RBC 3.50 L Hgb 11.5 L Hct 33.9 L MCV 96.9 H MCH 33.0 MCHC 34.0 RDW 13.4 Plt Count 218 MPV 8.2 Neutrophils % 67.4 Lymphocytes % 23.8 D Monocytes % 6.5 Eosinophils % 1.3 Basophils % 1.0 Sodium 137 Potassium 4.2 Chloride 105 Carbon Dioxide 25 Anion Gap 7 L BUN 13 Creatinine 0.9 Creat Clearance w eGFR > 60 POC Glucometer 265.33164 Random Glucose 285 H D Calcium 8.4 L Total Bilirubin 0.8 D AST 66 H D ALT 66 D Alkaline Phosphatase 92 D Total Protein 5.5 L D Albumin 3.0 L D 02/08/17 13:07 WBC RBC Hgb Hct MCV MCH MCHC RDW Plt Count MPV Neutrophils % Lymphocytes % Monocytes % Eosinophils % Basophils % Sodium Potassium Chloride Carbon Dioxide Anion Gap BUN Creatinine Creat Clearance w eGFR POC Glucometer 133.90637 Random Glucose Calcium Total Bilirubin AST ALT Alkaline Phosphatase Total Protein Albumin Problem List - Problems (1) DKA (diabetic ketoacidosis) Code(s): E13.10 - OTH DIABETES MELLITUS WITH KETOACIDOSIS WITHOUT COMA Qualifiers: Diabetes mellitus type: type 1 Diabetes mellitus complication detail: without coma Qualified Code(s): E10.10 - Type 1 diabetes mellitus with ketoacidosis without coma (2) Schizoaffective disorder Code(s): F25.9 - SCHIZOAFFECTIVE DISORDER, UNSPECIFIED Assessment/Plan DKA Dehydration Schizoaffective disorder Glycemic control Cogentin and haldol Electrolye replacement Zofran PRN Floor Dr Carlos
[2017-02-08] MEDS ORDERED: INSULIN (NOVOLOG) ASPART 100 UNITS/ML 10ML VIAL ONE (16:37)
[2017-02-08] MEDS ORDERED: CHLORHEXIDINE GLUCONATE 4% CLEANSER FOR DECOLONIZATION TP SCH (22:00)
[2017-02-08] MEDS ORDERED: MUPIROCIN 2% TOPICAL OINTMENT FOR DECOLONIZATION NS SCH (22:00)
[2017-02-09] MEDS ORDERED: Insulin (LOG) Aspart 100 UNITS/ML VIAL SQ ONE (00:32)
[2017-02-09] MEDS ORDERED: INSULIN DETEMIR 100 UNITS/ML MDV SQ SCH (07:00)
[2017-02-09] MEDS: HEPARIN NA (PORCINE) 5,000 UNITS/ML 1ML VIAL SQ SCH ×2 (07:17→13:08)
[2017-02-09] MEDS: INSULIN (NOVOLOG) ASPART 100 UNITS/ML 10ML VIAL SQ SCH ×4 (07:17→17:33)
[2017-02-09 08:23] LABS: ALBUMIN 3.1 g/dl (3.4-5.0); ANION GAP 10 (8-16); BILIRUBIN,TOTAL 1.2 mg/dL (0.2-1.0); CALCIUM 8.6 mg/dL (8.5-10.1); CO2 23 mmol/L (21-32); CREATININE 0.7 mg/dL (0.7-1.3); GLUCOSE,RANDOM 300 mg/dL (74-106); SGOT/AST 42 U/L (15-37); TOT PROT 5.9 g/dl (6.4-8.2)
[2017-02-09 08:27] LABS: BASOPHIL 0.7 % (0-2.0); EOSINOPHIL 2.2 % (0-4.5); MEAN CELL VOLUME 97.2 fl (80-96); MEAN PLT VOLUME 9.4 fl (7.5-11.1); NEUTROPHILS 63.9 % (42.8-82.8); PLATELET COUNT 200 K/MM3 (134-434); RDW 13.4 % (11.9-15.9); WHITE BLOOD COUNT 10.4 K/mm3 (4.0-10.0)
[2017-02-09 08:28] LABS: ALK PHOS 99 U/L (45-117); SGPT/ALT 57 U/L (12-78)
[2017-02-09] MEDS ORDERED: HALOPERIDOL 5 MG TABLET (FP) PO SCH (10:00)
[2017-02-09] MEDS: BENZTROPINE MESYLATE 1 MG TABLET (FP) PO SCH (10:05)
--- NOTE | 2017-02-09 11:18 | PN ---
Progress Note (short form) - Note Progress Note: Subjective: The patient was seen at the bedside. He has complaints that his novolog is being given too early, before meal at bedside; adjusted order Current Medications Generic Name Dose Route Start Last Admin Trade Name Poncho PRN Reason Stop Dose Admin Benztropine Mesylate 1 mg 02/08/17 22:00 02/09/17 10:05 Cogentin - PO 1 mg BID THLAIA Administration Haloperidol 5 mg 02/09/17 10:00 02/09/17 10:05 Haldol - PO 5 mg DAILY THALIA Administration Heparin Sodium (Porcine) 5,000 unit 02/08/17 22:00 02/09/17 07:17 Heparin - SQ Not Given TID THALIA Insulin Aspart 7 units 02/09/17 08:00 02/09/17 10:04 Novolog Vial SQ 7 units TIDAC THALIA Administration Insulin Detemir 20 units 02/09/17 07:00 02/09/17 07:16 Levemir Vial SQ 20 unit AM THALIA Administration Objective: Vital Signs Period Temp Pulse Resp BP Sys/[place] Pulse Ox Last 24 Hr 98.0 F-98.7 F 63-80 18-20 116-127/62-74 Physical Exam: Poor dentition Patient refused CBCD WBC 10.4 K/mm3 (4.0-10.0) H 02/09/17 06:10 RBC 3.71 M/mm3 (4.00-5.60) L 02/09/17 06:10 Hgb 12.2 GM/dL (11.7-16.9) 02/09/17 06:10 Hct 36.0 % (35.4-49) 02/09/17 06:10 MCV 97.2 fl (80-96) H 02/09/17 06:10 MCHC 34.0 g/dl (32.0-35.9) 02/09/17 06:10 RDW 13.4 % (11.9-15.9) 02/09/17 06:10 Plt Count 200 K/MM3 (134-434) 02/09/17 06:10 MPV 9.4 fl (7.5-11.1) D 02/09/17 06:10 CMP Sodium 135 mmol/L (136-145) L 02/09/17 06:10 Potassium 4.1 mmol/L (3.5-5.1) 02/09/17 06:10 Chloride 102 mmol/L (98-107) 02/09/17 06:10 Carbon Dioxide 23 mmol/L (21-32) 02/09/17 06:10 Anion Gap 10 (8-16) 02/09/17 06:10 BUN 19 mg/dL (7-18) H D 02/09/17 06:10 Creatinine 0.7 mg/dL (0.7-1.3) D 02/09/17 06:10 Creat Clearance w eGFR > 60 (>60) 02/09/17 06:10 Random Glucose 300 mg/dL (74-106) H 02/09/17 06:10 Calcium 8.6 mg/dL (8.5-10.1) 02/09/17 06:10 Total Bilirubin 1.2 mg/dL (0.2-1.0) H D 02/09/17 06:10 AST 42 U/L (15-37) H D 02/09/17 06:10 ALT 57 U/L (12-78) 02/09/17 06:10 Alkaline Phosphatase 99 U/L (45-117) 02/09/17 06:10 Total Protein 5.9 g/dl (6.4-8.2) L 02/09/17 06:10 Albumin 3.1 g/dl (3.4-5.0) L 02/09/17 06:10 CARDIAC ENZYMES Troponin I < 0.02 ng/ml (0.00-0.05) 02/06/17 12:20 Microbiology 02/06/17 13:40 Urine - Urine Clean Catch Urine Culture - Final NO GROWTH OBTAINED Assessment: This is a 41 year old male with PMHx of schizoaffective disorder, HTN, IDDM with multiple admissions for DKA, [place] s/p stent placement in 2012, who presented to the ED with nausea and vomiting and was found to have DKA. Plan: 1) DKA - Resolved - Continue Levemir 20u sq daily - Novolog 7u sq tidac - F/u endocrine consult (Called and left message with service this morning, awaiting evaluation) - Appreciate bear keeper consult 2) Schizoaffective disorder - Continue Haldol at current dose - Continue Cogentin 3) Cardiology: HTN - Not on home medications - BP controlled 4) F/E/N: - Monitor electrolytes - Diabetic diet 5) Prophylaxis: - Heparin 5,000u sq tid - OOB ambulating 6) Dispo: - Requires continued inpatient care CODE STATUS: FULL CODE Problem List - Problems (1) DKA (diabetic ketoacidosis) Code(s): E13.10 - OTH DIABETES MELLITUS WITH KETOACIDOSIS WITHOUT COMA Qualifiers: Diabetes mellitus type: type 1 Diabetes mellitus complication detail: without coma Qualified Code(s): E10.10 - Type 1 diabetes mellitus with ketoacidosis without coma (2) Diabetes type 1, uncontrolled Code(s): E10.65 - TYPE 1 DIABETES MELLITUS WITH HYPERGLYCEMIA (3) Schizoaffective disorder Code(s): F25.9 - SCHIZOAFFECTIVE DISORDER, UNSPECIFIED Visit type - Emergency Visit Emergency Visit: Yes ED Registration Date: 02/06/17 Care time: The patient presented to the Emergency Department on the above date and was hospitalized for further evaluation of their emergent condition. - New Patient This patient is new to me today: No - Critical Care Critical Care patient: No
[2017-02-09 14:09] VITALS: BP 111/64; PULSE 75; TEMP 98.5
--- NOTE | 2017-02-09 17:02 | CONSULT ---
Consult Consult Specialty:: Endocrinology Referred by:: India Richards Reason for Consultation:: DKA - History of Present Illness Chief Complaint: Nausea History of Present Illness: This is a 41 year old man with h/f schizoaffective disorder, HTN, T1DM for 17 years with multiple admissions for DKA, [place] s/p stent placement in 2012, who presented to the ED with nausea and vomiting and was found to have DKA. Denies any polyuria, polydipsia or nocturia. Denies any visual symptoms and doesn't remember when he saw ophthalmology last. He says he takes Levemir 20 units daily in the morning prior to admission but used to take 10u bid in the past. Also takes 7u humalog tidac. FS at home 100 to 150. No hypos recently. No paresthesia of feet. - History Source History Provided By: Patient, Medical Record Limitations to Obtaining History: Uncooperative - Past Medical History Cardio/Vascular: Yes: HTN, Hyperlipdemia, [place] (Status post stent) Gastrointestinal: Yes: Other (Hernia) Psych: Yes: Other (Schizoaffective disorder) Endocrine: Yes: Diabetes Mellitus - Past Surgical History Past Surgical History: Yes: None - Alcohol/Substance Use Hx Alcohol Use: Yes Number of Drinks Daily: 1 History of Substance Use: reports: Marijuana - Smoking History Smoking history: Current every day smoker Have you smoked in the past 12 months: Yes Aproximately how many cigarettes per day: 20 Home Medications - Allergies Allergies/Adverse Reactions: Allergies Allergy/AdvReac Type Severity Reaction Status Date / Time Penicillins Allergy Verified 02/06/17 11:27 shellfish derived Allergy Verified 02/06/17 11:27 - Home Medications Home Medications: Ambulatory Orders Benztropine Mesylate [Cogentin -] 1 mg PO BID 03/15/14 Haloperidol [Haldol -] 5 mg PO DAILY 03/15/14 Insulin Glargine,Hum.rec.anlog [Lantus Solostar PEN -] 15 units SQ HS 03/15/14 Insulin Lispro [Humalog] 10 unit SQ AC 03/15/14 Family Disease History - Family Disease History Family Disease History: Diabetes: Father, Other: Mother (unknown) Other Family History: No family h/o DM Review of Systems - Review of Systems Constitutional: reports: No Symptoms Eyes: reports: No Symptoms HENT: reports: No Symptoms Neck: reports: No Symptoms Cardiovascular: reports: No Symptoms Respiratory: reports: No Symptoms Gastrointestinal: reports: No Symptoms Genitourinary: reports: No Symptoms Breasts: reports: No Symptoms Reported Musculoskeletal: reports: No Symptoms Neurological: reports: No Symptoms Endocrine: reports: No Symptoms Hematology/Lymphatic: reports: No Symptoms Physical Exam Vital Signs: Vital Signs Temperature 98.5 F 02/09/17 14:00 Pulse Rate 75 02/09/17 14:00 Respiratory Rate 20 02/09/17 14:00 Blood Pressure 111/64 02/09/17 14:00 O2 Sat by Pulse Oximetry (%) 97 02/06/17 19:55 Constitutional: Yes: No Distress, Calm Eyes: Yes: Conjunctiva Clear, EOM Intact HENT: Yes: Atraumatic, Normocephalic Neck: Yes: Supple, Trachea Midline Cardiovascular: Yes: Regular Rate and Rhythm Respiratory: Yes: Regular, CTA Bilaterally Gastrointestinal: Yes: Normal Bowel Sounds, Soft Musculoskeletal: Yes: WNL Extremities: Yes: WNL Edema: No Neurological: Yes: Alert, Oriented Labs: CBC, BMP 02/09/17 06:10 02/09/17 06:10 Problem List - Problems (1) DKA (diabetic ketoacidosis) Code(s): E13.10 - OTH DIABETES MELLITUS WITH KETOACIDOSIS WITHOUT COMA Qualifiers: Diabetes mellitus type: type 1 Diabetes mellitus complication detail: without coma Qualified Code(s): E10.10 - Type 1 diabetes mellitus with ketoacidosis without coma (2) CAD (coronary artery disease) Code(s): I25.10 - ATHSCL HEART DISEASE OF [place] CORONARY ARTERY W/O ANG PCTRS (3) Diabetes type 1, uncontrolled Code(s): E10.65 - TYPE 1 DIABETES MELLITUS WITH HYPERGLYCEMIA Assessment/Plan AP: T1DM S/P DKA Discussed need to take Levemir daiy as prescribed. Discussed risk of DKA everytime he skips it. Pt verbalizes understanding Change Levemir to 12 units BID as it is not truly 24 hour Insulin and Type 1 patients do better on BID dosing of this insulin Increase Novolog to 8 units TID
[2017-02-09] MEDS ORDERED: INSULIN (NOVOLOG) ASPART 100 UNITS/ML 10ML VIAL SQ SCH (17:15)
== END 2017-02-09 18:12 | disposition left against medical advice (07) | DRG 638 ==
LOC: JER 11:09 → JERBED 14:01 → JICU 17:26 → J6S 02-08 16:19
PROVIDERS: ADMIT Internal Medicine; ATTEND Registered Nurse
DX: E10.10 Type 1 diabetes mellitus with ketoacidosis without coma (principal); R64 Cachexia; E86.0 Dehydration; Z68.1 Body mass index [BMI] 19.9 or less, adult; I25.2 Old myocardial infarction; I10 Essential (primary) hypertension; F25.9 Schizoaffective disorder, unspecified; Z88.0 Allergy status to penicillin; Z91.013 Allergy to seafood; Z79.4 Long term (current) use of insulin; F17.210 Nicotine dependence, cigarettes, uncomplicated; F12.10 Cannabis abuse, uncomplicated
CPT/HCPCS: 36415; 71010-TC; 80048; 80053; 81003; 82009; 82803; 82947; 83690; 83735; 84100; 84484; 85025; 85730; 87086; 93005; 93010; 99285-25; J1644